=== PATIENT | male | born 1965 | race Caucasian/White ===

== ENCOUNTER → 2020-05-26 | Outpatient (CLI) | payer OTHER ==
[~2020-05-26] MED LIST: FENOFIBRATE PO; GLUCOPHAGE500 MG PO; LIPITOR TAB 1010 MG PO; LOSARTAN-HCTZ1 EACH PO
[2020-05-26 11:43] LABS: HEMOGLOBIN 15.5 gm/dl (14.0-17.5); RED BLOOD COUNT 5.06 M/UL (4.20-5.50)
[2020-05-26 12:13] LABS: BUN/CREATININE RATIO 21 (0-10)
[2020-05-27 12:13] LABS: CREATININE, URINE 27.4 mg/dL (Not Estab.); MICROALB/CREAT RATIO <11 (0-29)
== END ==
LOC: LAB 10:37
PROVIDERS: Nurse Practitioner Family
DX: Z12.5 Encounter for screening for malignant neoplasm of prostate (principal); E11.9 Type 2 diabetes mellitus without complications; E78.5 Hyperlipidemia, unspecified; E55.9 Vitamin D deficiency, unspecified
CPT/HCPCS: 36415; 80053; 80061; 82043; 82570; 83036; 84153; 84439; 84443; 85025

== ENCOUNTER → 2020-07-10 | Outpatient (CLI) | payer OTHER | LOC: NM 09:00 | DX: R07.9 Chest pain, unspecified (principal); Z53.9 Procedure and treatment not carried out, unspecified reason ==

== ENCOUNTER → 2020-08-07 | Outpatient (CLI) | payer OTHER | LOC: HEART 5 07:27 | DX: R07.9 Chest pain, unspecified (principal); I08.0 Rheumatic disorders of both mitral and aortic valves; R93.1 Abnormal findings on diagnostic imaging of heart and coronary circulation; R94.39 Abnormal result of other cardiovascular function study | CPT/HCPCS: 78452; 93306; A9502; J2785 ==

== ENCOUNTER 2022-01-03 13:02 | Emergency (ER) | payer SELFPAY | END 2022-01-03 13:39 | disposition left against medical advice (07) | LOC: ER1 13:02 | DX: Z53.21 Procedure and treatment not carried out due to patient leaving prior to being seen by health care provider (principal) ==